=== PATIENT | female | born 1990 | race Caucasian/White ===

== ENCOUNTER 2016-11-06 23:45 | Inpatient (IN) | payer OTHER ==
--- NOTE | ~2016-11-06 | HP ---
Unit #: [id number] #: [id number] Patient: LOS GARCIA [id number] [address] [place], [place] [address] [id number] I MR#: [id number] NAME: LOS GARCIA ROOM: 550 Age: 26 Sex: F Admission Date: 11/07/2016 : 1990 Attending Physician: Magali Cruz M.D. Primary Care Physician: No Primary Care Physician HISTORY AND PHYSICAL CHIEF COMPLAINT Asthma exacerbation and acute hypoxic respiratory failure. HISTORY This pleasant 26-year-old female, who was diagnosed with asthma last fall, is admitted for shortness of breath. The patient states that she was diagnosed with asthma last fall and uses her albuterol nebulizer twice a day, even on good days. She became increasingly short of breath three days ago with wheezing, with a deep cough productive of clear phlegm/sputum. Went to [facility] where she was treated in the ER and released. She developed worsening symptoms despite her usual albuterol, and a steroid Dosepak. When she presented to this emergency department late last evening, she had significant bronchospasm per the physician's assistant vice president. She was treated with 125 mg of Solu-Medrol, a liter of saline, albuterol vtgp-re-nino nebulizer, given Tussionex and currently is receiving 2 g of IV magnesium. Her O2 sats have ranged from about 88 to 91% on room air. Although she is feeling improved, her O2 saturation was still low off oxygen. PAST MEDICAL HISTORY 1. Asthma diagnosed 04/2016. 2. x3. 3. BTL. ALLERGIES Codeine. HOME MEDICATIONS 1. The patient was recently prescribed prednisone 60 mg. 2. Patient takes albuterol nebulizer and MDI. She states that she has been taking her albuterol every couple hours yesterday. FAMILY HISTORY Negative for lung disease. SOCIAL HISTORY The patient lives with her fiance and three children. Is a lifelong nonsmoker. Seldom drinks alcohol and does not use illicit drugs. REVIEW OF SYSTEMS Notable for shortness of breath, cough, wheezing, asthma, above mentioned surgeries. All other systems were reviewed and are otherwise negative. Unit #: [id number] #: [id number] Patient: LOS GARCIA PHYSICAL EXAMINATION GENERAL APPEARANCE: Pleasant, mildly obese 26-year-old female who currently is in no acute distress. She is somewhat tachypneic. VITAL SIGNS: Temperature 98.4, pulse 99, respirations 20, blood pressure 133/74. O2 saturation is 91% on 2 L of oxygen. HEENT: Eyes PERRLA. Extraocular muscles are intact. Pharynx is benign. NECK: Supple without adenopathy or thyromegaly. CHEST: Diminished breath sounds currently but otherwise fairly clear. Physician's assistant vice president tells me that she had significant bronchospasm when she initially presented to the ER. CARDIAC: Slightly tachy S1 and S2 without S3, S4 or murmur. ABDOMEN: Bowel sounds are present. No hepatosplenomegaly, tenderness or masses. EXTREMITIES: Without clubbing, cyanosis or edema. Pedal pulses are present. NEUROLOGIC: The patient is awake, alert, oriented. Cranial nerves are intact. Equal strength throughout. DIAGNOSTIC STUDIES LABORATORY: Admission labs - hematocrit is 37.6, white blood count 15.4, MCV is 76. Normal platelet count. Flu serology negative. SMA-7 - glucose 140 on prednisone. Point of care beta hcg in the ER was negative. IMAGING: Chest x-ray - no acute disease. ASSESSMENT 1. Possible asthma exacerbation with possible bronchitis: The patient was diagnosed with asthma last fall. She presents with acute hypoxic respiratory failure. 2. Questionable bronchitis. 3. Mild hyperglycemia, likely related to outpatient steroid pack. PLANS 1. Steroids, albuterol, mucolytics, Zithromax and add Symbicort. 2. Will request a D-dimer. If elevated, will check a CT scan. 3. DVT and gastritis prophylaxis. Dictated by Magali Cruz M.D. AML/df TD: 11/07/2016 05:57 JOB #: [id number] Unit #: [id number] #: [id number] Patient: LOS GARCIA HISTORY AND PHYSICAL Page 1 of 1 X Magali Cruz MD HISTORY AND PHYSICAL
--- NOTE | ~2016-11-06 | DS ---
Unit #: [id number] #: [id number] Patient: LOS GARCIA [id number] [address] [place], [place] [address] [id number] I MR#: [id number] NAME: LOS GARCIA ROOM: 550 Age: 26 Sex: F Admission Date: 11/07/2016 : 1990 Discharge Date: 11/08/2016 Attending Physician: Rashi Gibson M.D. Primary Care Physician: Primary Care Physician No DISCHARGE SUMMARY DISCHARGE DIAGNOSES 1. Acute respiratory failure. 2. Asthma exacerbation. HOSPITAL COURSE The patient is a 26-year-old female with asthma, who presents to the [facility] secondary to shortness of breath. She states that over the past week she has been needing her albuterol b.i.d. Ultimately, she began to wheeze diffusely and developed a productive cough. She was treated initially as an outpatient, but failed having presented with worsening of symptoms. She was noted to have oxygen saturations of 88% on room air upon presentation. The patient was recently started on a cough suppressant and was given 2 g IV magnesium. She was placed on oxygen. She was started on IV steroids and breathing treatments as well. She was started on Zithromax for her increased sputum production. At this time, the patient is now requiring no oxygen. Her wheeze has essentially resolved. She states she feels very nearly to her baseline and request discharge. Given her marked improvement, this seems reasonable. DISCHARGE MEDICATIONS Albuterol per nebulizer as needed, Ventolin 2 puffs q.6 hours as needed, Zithromax 500 mg one p.o. daily x3 more days, Dulera 100/5 two puffs b.i.d., prednisone taper. FOLLOWUP The patient should follow up with her primary care provider at the end of her prednisone taper. Dictated by... Rashi Gibson M.D. ALYCIA/sarabjitl TD: 11/08/2016 23:43 JOB #: [id number] Unit #: [id number] #: [id number] Patient: LOS GARCIA DISCHARGE SUMMARY Page 1 of 1 X Rashi Gibson MD DISCHARGE SUMMARY
--- NOTE | ~2016-11-06 | CR63 ---
[facility] A Service of [facility] & [facility] RADIOLOGY TEXT RESULTS PATIENT: LOS GARCIA LOCATION: B 550-01 : [birth year] UNIT #: [id number] AGE: [address]: Rashi Gibson MD SEX: F ORDER DR: [id number] [facility] [address]. [place], [place] [address] [id number] I MR#: [id number] Acc #: [id number] NAME: LOS GARCIA : 1990 SEX: F STUDY DATE/TIME: 11/07/2016 0:26 UNIT: [facility] ROOM: [facility] STUDY DESCRIPTION: CR Chest 2 View Attending Physician: Rashi Gibson M.D. Ordering Physician: Higinio De La Rosa P.A.-C. Primary Care Physician: Primary Care Physician No MEDICAL IMAGING REPORT This report is preliminary unless electronic signature is present EXAM Chest 2 views 11/07/2016 INDICATIONS 26-year-old female with shortness of air this morning, asthma. No known injury. TECHNIQUE Two-view chest no comparisons. FINDINGS Cardiac silhouette within normal limits. The vascularity is unremarkable. There is no effusion or dense consolidation. No pneumothorax. IMPRESSION 1. Negative chest. We have no comparisons. Dictated by... Kvng Bates M.D. THIS IS AN ELECTRONICALLY VERIFIED REPORT Kvng Bates M.D. at 11/07/2016 9:57 PM Maria Elena TD: 11/07/2016 09:50 JOB #: [id number] MEDICAL IMAGING REPORT Page 1 of 1 COPY
[2016-11-07 00:52] LABS: BASOPHIL# 0.1 X10e3 (0-0.3); BASOPHIL% 0.4 % (0-2.5); HEMATOCRIT 37.6 % (35.0-45.0); HEMOGLOBIN 11.9 gm/dL (12.0-16.0); LYMPHOCYTE# 0.8 X10e3 (1.0-3.5); LYMPHOCYTE% 5.2 % (17.0-45.0); MEAN CELL VOLUME 76.1 FL (83-96); MEAN CORPUSCULAR HEMOGLOBIN 24.1 PG (28-34); MEAN CORPUSCULAR HGB CONC 31.7 g/dL (30-36); MEAN PLATELET VOLUME 8.9 FL (6.5-11.5); MONOCYTE# 0.3 X10e3 (0-1.0); MONOCYTE% 1.8 % (3.0-12.0); NEUTROPHIL# 14.3 X10e3 (1.5-7.1); NEUTROPHIL% 92.6 % (40-75); PLATELET COUNT 416 X10e3 (140-420); RED BLOOD COUNT 4.94 X10e (3.90-5.30); WHITE BLOOD COUNT 15.4 X10e3 (4.0-10.5)
[2016-11-07 00:57] LABS: DIFF IND YES
[2016-11-07 01:17] LABS: BUN/CREATININE RATIO 12.5; CALCIUM SERUM 9.6 mg/dL (8.4-10.2); CREATININE SERUM 0.8 mg/dL (0.6-1.4); GLOM FILT RATE Estimated 103.3 mL/min (>60); POTASSIUM 3.7 mmol/L (3.5-5.1)
[2016-11-07 01:35] LABS: INFLUENZA A NEG (NEG); INFLUENZA B NEG (NEG)
[2016-11-07 01:41] LABS: PLATELET ESTIMATE INCREASED (NORMAL)
[2016-11-07 01:42] LABS: ANISOCYTOSIS SL; MICROCYTOSIS MOD
[2016-11-07] MEDS ORDERED: ALBUTEROL0.83 MG/ML INH (02:42)
[2016-11-07] MEDS ORDERED: ALBUTEROL17 GM INH (02:43)
[2016-11-07 04:46] LABS: ALBUMIN SERUM 4.2 g/dL (3.5-5.0); BILIRUBIN,TOTAL 0.3 mg/dL (0.2-2.0); CALCIUM SERUM 9.1 mg/dL (8.4-10.2); CREATININE SERUM 0.5 mg/dL (0.6-1.4); GLOM FILT RATE Estimated 135.5 mL/min (>60); POTASSIUM 4.1 mmol/L (3.5-5.1)
[2016-11-08 06:43] LABS: BUN/CREATININE RATIO 26.66; CALCIUM SERUM 8.8 mg/dL (8.4-10.2); CREATININE SERUM 0.6 mg/dL (0.6-1.4); GLOM FILT RATE Estimated 127.6 mL/min (>60); POTASSIUM 4.3 mmol/L (3.5-5.1)
[2016-11-08] MEDS ORDERED: HUMIBID-LA600 MG PO (13:23)
[2016-11-08] MEDS ORDERED: AZITHROMYCIN500 MG PO (13:24)
[2016-11-08] MEDS ORDERED: PREDNISONE10 MG/DOSE PO (13:26)
[2016-11-08] MEDS ORDERED: DULERA 100 MCG/13 GM INH (13:31)
== END 2016-11-08 18:40 | disposition home or self-care (01) | DRG 189 ==
LOC: CED 23:45 → CEDOF 11-07 03:09 → C5B 11-07 05:17
PROVIDERS: Internal Medicine; Physician Assistant
DX: J96.01 Acute respiratory failure with hypoxia (principal); J45.901 Unspecified asthma with (acute) exacerbation; R73.9 Hyperglycemia, unspecified; Z98.51 Tubal ligation status
CPT/HCPCS: 36415; 71020; 80048; 80053; 84703; 85025; 85379; 87804; 94640; 94664; 94760; 96361; 96365; 96366; 96375; 99285; J0456; J1650; J2920; J2930; J3475

== ENCOUNTER 2016-12-23 19:37 | Emergency (ER) | payer OTHER ==
--- NOTE | ~2016-12-23 | CT2 ---
[facility] A Service of [facility] RADIOLOGY TEXT RESULTS PATIENT: LOS GARCIA LOCATION: [facility] : [birth year] UNIT #: [id number] AGE: [address]: Maico Early MD SEX: F ORDER DR: [id number] [facility] [address] [place], [place] [address] [id number] E MR#: [id number] Acc #: [id number] NAME: LOS GARCIA : 1990 SEX: F STUDY DATE/TIME: 12/23/2016 23:04 UNIT: [facility] ROOM: STUDY DESCRIPTION: CT Abd and Pelv W Cont Attending Physician: Maico Early M.D. Ordering Physician: Maico Early M.D. Primary Care Physician: Primary Care Physician No MEDICAL IMAGING REPORT This report is preliminary unless electronic signature is present EXAM Abdomen and pelvis CT, 12/23 at 23:04 INDICATIONS Left lower quadrant pain for 3 days with nausea, vomiting and diarrhea. TECHNIQUE Axial images were obtained through the abdomen and pelvis following IV contrast administration. Multiplanar reformats were obtained. No comparison. This CT exam was performed with one or more of the following radiation dose reduction techniques: Automatic exposure control, adjustment of mA and/or kV according to patient size, and iterative reconstruction. FINDINGS ABDOMEN: Lung bases are clear. Gallbladder is normal. There is no biliary obstruction. There is a 4 mm nonobstructing stone in the left kidney. Solid organs are otherwise normal. No adenopathy or free fluid is seen. The unopacified GI tract is normal. PELVIS: Urinary bladder is normal. There is a left ovarian cyst measuring about 1.8 cm. This may be ruptured, and there is some free fluid in the cul-de-sac. Solid pelvic organs are otherwise normal. The appendix is normal. The remainder of the unopacified GI tract is normal as well. IMPRESSION 1. 1.8 cm left ovarian cyst, which is likely ruptured. There is some free fluid in the cul-de-sac as well. 2. Normal unopacified GI tract, including the appendix. 3. 4 mm nonobstructing stone in the left kidney. [facility] A Service of [facility] RADIOLOGY TEXT RESULTS PATIENT: LOS GARCIA LOCATION: [facility] : [birth year] UNIT #: [id number] AGE: [address]: Maico Early MD SEX: F ORDER DR: Dictated by... Dav Perez Jr., M.D. THIS IS AN ELECTRONICALLY VERIFIED REPORT Dav Perez Jr., M.D. at 12/24/2016 9:22 PM ABILIO/jefe TD: 12/24/2016 16:32 JOB #: [id number] MEDICAL IMAGING REPORT Page 1 of 1 COPY
[~2016-12-23 19:37] MED LIST: ALBUTEROL0.83 MG/ML INH; ALBUTEROL17 GM INH; AZITHROMYCIN500 MG PO; DULERA 100 MCG/13 GM INH; HUMIBID-LA600 MG PO; PREDNISONE10 MG/DOSE PO
[2016-12-23 20:37] LABS: URINE APPEARANCE CLEAR; URINE BILIRUBIN NEG (NEG); URINE BLOOD NEG (NEG); URINE COLOR YELLOW; URINE GLUCOSE NEG (NEG); URINE KETONE NEG (NEG); URINE LEUKOCYTE ESTERASE 1+ (NEG); URINE NITRATE NEG (NEG); URINE PH 6.5 (5-8); URINE PROTEIN NEG (NEG); URINE SPECIFIC GRAVITY 1.007 (1.003-1.035); URINE UROBILINOGEN 0.2 MG/DL (NEG)
[2016-12-23 20:41] LABS: CULTURE INDICATED? YES; URBCS1 AUWI 0-2 /[HPF] (0-2); URINE BACTERIA AUWI NEG (NEGATIVE); URINE SQUAMOUS EPITHELIAL CELL OCC /[HPF]
[2016-12-23 21:29] LABS: BASOPHIL# 0.2 X10e3 (0-0.3); BASOPHIL% 1.1 % (0-2.5); EOSINOPHIL# 0.5 X10e3 (0-0.7); EOSINOPHIL% 3.7 % (0.0-7.0); HEMATOCRIT 37.7 % (35.0-45.0); HEMOGLOBIN 12.2 gm/dL (12.0-16.0); LYMPHOCYTE# 5.2 X10e3 (1.0-3.5); LYMPHOCYTE% 36.5 % (17.0-45.0); MEAN CELL VOLUME 75.9 FL (83-96); MEAN CORPUSCULAR HEMOGLOBIN 24.7 PG (28-34); MEAN CORPUSCULAR HGB CONC 32.5 g/dL (30-36); MEAN PLATELET VOLUME 8.8 FL (6.5-11.5); MONOCYTE# 1.1 X10e3 (0-1.0); NEUTROPHIL# 7.2 X10e3 (1.5-7.1); NEUTROPHIL% 50.7 % (40-75); PLATELET COUNT 393 X10e3 (140-420); RED BLOOD COUNT 4.97 X10e (3.90-5.30); RED CELL DISTRIBUTION WIDTH 16.5 % (11.0-15.5); WHITE BLOOD COUNT 14.3 X10e3 (4.0-10.5)
[2016-12-23 21:30] LABS: DIFF IND NO
[2016-12-23 21:50] LABS: ALBUMIN SERUM 4.4 g/dL (3.5-5.0); BILIRUBIN,TOTAL 0.3 mg/dL (0.2-2.0); BUN/CREATININE RATIO 12.22; CALCIUM SERUM 9.2 mg/dL (8.4-10.2); CREATININE SERUM 0.9 mg/dL (0.6-1.4); GLOM FILT RATE Estimated 89.6 mL/min (>60); POTASSIUM 3.9 mmol/L (3.5-5.1)
[2016-12-27 11:46] LABS: CHLAMYDIA TRACH Not Detected (Not Detected); N GONOR Not Detected (Not Detected)
== END 2016-12-24 00:16 | disposition home or self-care (01) ==
LOC: CED 19:37
PROVIDERS: Emergency Medicine
DX: N83.202 Unspecified ovarian cyst, left side (principal); Z88.5 Allergy status to narcotic agent; Z79.899 Other long term (current) drug therapy
CPT/HCPCS: 36415; 74177; 80053; 81003; 84703; 85025; 87086; 87491; 87591; 87808; 87905; 96361; 96374; 96375; 99284; J2270; J2405; Q9967

== ENCOUNTER 2017-02-07 14:26 | Emergency (ER) | payer OTHER ==
--- NOTE | ~2017-02-07 | US98 ---
[facility] A Service of [facility] & [facility] RADIOLOGY TEXT RESULTS PATIENT: LOS GARCIA LOCATION: [facility] : [birth year] UNIT #: [id number] AGE: [address]: Penny Miller APRN SEX: F ORDER DR: [id number] [facility] [address] [place], [place] [address] [id number] E MR#: [id number] Acc #: [id number] NAME: LOS GARCIA : 1990 SEX: F STUDY DATE/TIME: 02/07/2017 16:27 UNIT: [facility] ROOM: STUDY DESCRIPTION: US Pelvic Non-OB Complete Attending Physician: Elpidio CrawfordPPadminiRNicci Ordering Physician: Ed Junior Etienne M.D. Primary Care Physician: Willem Haynes Jr. A.P.RNicci MEDICAL IMAGING REPORT This report is preliminary unless electronic signature is present EXAMINATION Transabdominal and transvaginal pelvic ultrasound. DATE 02/07/2017 HISTORY 26-year-old female with left pelvic pain for 2 weeks. No bleeding. Tubal ligation 19 months ago. Three prior sections. Patient states she missed a menstrual cycle. Last menstrual period 12/21/2016. AB 0. COMPARISON CT of abdomen and pelvis, 12/23/2016. No previous pelvic ultrasound at this institution for comparison. PROCEDURE Transabdominal images performed for generalized visualization of pelvic structures while transvaginal imaging was performed for more detailed evaluation of the adnexa. FINDINGS The uterus measures 7.6 x 5.5 x 3.8 cm. Endometrial bilayer measures about 11 mm thickness. No endometrial lesion is seen. No myometrial abnormalities identified. Right ovary measures 4.4 x 4.4 x 2.0 cm contains small follicles, the dominant measuring nearly 6 mm. The right ovary demonstrates normal color and spectral Doppler flow. The left ovary measures 1.5 x 1.9 x 4.1 cm without cystic or solid abnormality. The left ovary demonstrates normal color and spectral Doppler flow. No pelvic free fluid is identified. IMPRESSION [facility] A Service of [facility] & [facility] RADIOLOGY TEXT RESULTS PATIENT: LOS GARCIA LOCATION: [facility] : 92 UNIT #: [id number] AGE: [address]: Penny Miller APRN SEX: F ORDER DR: 1. Normal transabdominal and transvaginal pelvic ultrasound. 2. Normal flow is documented to each ovary. Dictated by... Ciara Lange M.D. THIS IS AN ELECTRONICALLY VERIFIED REPORT Ciara Lange M.D. at 02/08/2017 10:02 AM ISABEL/sarah TD: 02/07/2017 20:13 JOB #: [id number] MEDICAL IMAGING REPORT Page 1 of 1 COPY
[2017-02-07 14:45] LABS: URINE SOURCE CLEAN CATCH
[2017-02-07 14:54] LABS: URINE APPEARANCE CLEAR; URINE BILIRUBIN NEG (NEG); URINE BLOOD NEG (NEG); URINE COLOR YELLOW; URINE GLUCOSE NEG (NEG); URINE KETONE NEG (NEG); URINE LEUKOCYTE ESTERASE TRACE (NEG); URINE NITRATE NEG (NEG); URINE PROTEIN NEG (NEG); URINE SPECIFIC GRAVITY 1.029 (1.003-1.035)
[2017-02-07 15:07] LABS: CULTURE INDICATED? YES; URBCS1 AUWI 0-2 /[HPF] (0-2); URINE SQUAMOUS EPITHELIAL CELL OCCAS /[HPF]
[2017-02-07 15:51] LABS: BASOPHIL# 0.1 X10e3 (0-0.3); BASOPHIL% 0.5 % (0-2.5); EOSINOPHIL# 0.2 X10e3 (0-0.7); EOSINOPHIL% 1.1 % (0.0-7.0); HEMATOCRIT 37.9 % (35.0-45.0); HEMOGLOBIN 11.9 gm/dL (12.0-16.0); LYMPHOCYTE# 3.5 X10e3 (1.0-3.5); MEAN CELL VOLUME 76.9 FL (83-96); MEAN CORPUSCULAR HEMOGLOBIN 24.1 PG (28-34); MEAN CORPUSCULAR HGB CONC 31.3 g/dL (30-36); MEAN PLATELET VOLUME 8.2 FL (6.5-11.5); MONOCYTE# 1.5 X10e3 (0-1.0); MONOCYTE% 9.6 % (3.0-12.0); NEUTROPHIL# 10.1 X10e3 (1.5-7.1); NEUTROPHIL% 65.8 % (40-75); PLATELET COUNT 434 X10e3 (140-420); RED BLOOD COUNT 4.93 X10e (3.90-5.30); RED CELL DISTRIBUTION WIDTH 16.8 % (11.0-15.5); WHITE BLOOD COUNT 15.3 X10e3 (4.0-10.5)
[2017-02-07 15:53] LABS: DIFF IND YES
[2017-02-07 16:07] LABS: PLATELET ESTIMATE NORMAL (NORMAL); RBC NORMAL YES
[2017-02-07 16:12] LABS: ALBUMIN SERUM 4.3 g/dL (3.5-5.0); BILIRUBIN,TOTAL 0.5 mg/dL (0.2-2.0); CALCIUM SERUM 8.9 mg/dL (8.4-10.2); CREATININE SERUM 0.7 mg/dL (0.6-1.4); GLOM FILT RATE Estimated 121.3 mL/min (>60); POTASSIUM 3.6 mmol/L (3.5-5.1); PROTEIN TOTAL SERUM 7.9 g/dL (6.0-8.3)
[2017-02-09 21:57] LABS: CHLAMYDIA TRACH Not Detected (Not Detected); N GONOR Not Detected (Not Detected)
== END 2017-02-07 17:35 | disposition home or self-care (01) ==
LOC: CED 14:26 → CFTX 14:26
PROVIDERS: Nurse Practitioner
DX: R10.2 Pelvic and perineal pain (principal); R10.12 Left upper quadrant pain; Z88.5 Allergy status to narcotic agent
CPT/HCPCS: 36415; 76830; 76856; 80053; 81003; 83690; 84703; 85025; 87086; 87491; 87591; 87808; 87905; 99284